=== PATIENT | female | born 1975 | race Two or more races ===

== ENCOUNTER 2017-09-06 12:12 | Emergency (ER) | payer OTHER ==
[2017-09-06 12:21] VITALS: RESP 18; TEMP 97.9
--- NOTE | 2017-09-06 12:55 | ED PDOC ---
Arrival/HPI - General Historian: Patient - General Chief Complaint: Finger,Hand,&Wrist Time Seen by Provider: 09/06/17 12:52 - History of Present Illness Narrative History of Present Illness (Text): 09/06/17 13:02 42yo female with no PMHx who present with complaint of tingling/numbness and pain to her hand and neck pain s/p trauma yesterday. States she fell while snow boarding and injured her neck. States she was seen at Urgent care center yesterday and told she have a Cervical strain. States she told to take Ibuprofen for her pain as needed, that the pain and paresthesia will resolve with time. She came to ED today for pain medication. She denies focal weakness, visual changes, headache, nausea, vomiting, any other complaint. (Armando Shrestha) Past Medical History - Provider Review Nursing Documentation Reviewed: Yes - Infectious Disease Hx of Infectious Diseases: None - Psychiatric Hx Substance Use: No - Surgical History Hx Section: Yes Family/Social History - Physician Review Nursing Documentation Reviewed: Yes Family/Social History: Unknown Family HX Smoking Status: Never Smoked Hx Alcohol Use: Yes Frequency of alcohol use: Socially Hx Substance Use: No Allergies/Home Meds Allergies/Adverse Reactions: Allergies No Known Allergies Allergy (Verified 09/06/17 12:22) Review of Systems - Physician Review All systems were reviewed & negative as marked: Yes - Review of Systems Constitutional: Normal Eyes: Normal ENT: Normal Respiratory: Normal Cardiovascular: Normal Gastrointestinal: Normal Genitourinary Female: Normal Musculoskeletal: Arthralgias (B/L hand pain/paresthesia), Neck Pain Skin: Normal Neurological: Normal Endocrine: Normal Hemo/Lymphatic: Normal Psychiatric: Normal Physical Exam Vital Signs Reviewed: Yes Temperature: Afebrile Blood Pressure: Normal Pulse: Regular Respiratory Rate: Normal Appearance: Positive for: Well-Appearing, Non-Toxic, Comfortable Pain Distress: None Mental Status: Positive for: Alert and Oriented X 3 - Systems Exam Head: Present: Atraumatic, Normocephalic Pupils: Present: PERRL Extroacular Muscles: Present: EOMI Conjunctiva: Present: Normal Mouth: Present: Moist Mucous Membranes Neck: Present: Normal Range of Motion. No: MIDLINE TENDERNESS, Paraspinal Tenderness Respiratory/Chest: Present: Clear to Auscultation, Good Air Exchange. No: Respiratory Distress, Accessory Muscle Use Cardiovascular: Present: Regular Rate and Rhythm, Normal S1, S2. No: Murmurs Abdomen: Present: Normal Bowel Sounds. No: Tenderness, Distention, Peritoneal Signs Back: Present: Normal Inspection Upper Extremity: Present: Normal Inspection, Normal ROM, NORMAL PULSES, Neurovascularly Intact. No: Cyanosis, Edema, Tenderness, Swelling, Deformity Lower Extremity: Present: Normal Inspection. No: Edema Neurological: Present: GCS=15, CN II-XII Intact, Speech Normal Skin: Present: Warm, Dry, Normal Color. No: Rashes Psychiatric: Present: Alert, Oriented x 3, Normal Insight, Normal Concentration Vital Signs Temp Pulse Resp BP Pulse Ox 09/06/17 13:25 78 18 120/79 98 09/06/17 12:18 97.9 F 76 18 143/90 99 Medical Decision Making ED Course and Treatment: 09/06/17 19:54 Pt in ED for stated history. She had FROM. NVI. Strength was 5/5. She was already seen at and had xray of her cervical spine done. She came to ED for pain control. she was treated and DC home with Neurontin. Referred to her PMD/ ortho. (Armando Shrestha) - Medication Orders Current Medication Orders: Discontinued Medications Gabapentin (Neurontin) 300 mg PO STAT STA PRN Reason: Protocol Stop: 09/06/17 12:53 Last Admin: 09/06/17 13:01 Dose: 300 mg Disposition/Present on Arrival - Present on Arrival Any Indicators Present on Arrival: No History of DVT/PE: No History of Uncontrolled Diabetes: No Urinary Catheter: No History of Decub. Ulcer: No History Surgical Site Infection Following: None - Disposition Have Diagnosis and Disposition been Completed?: Yes Disposition Time: 13:15 Patient Plan: Discharge - Disposition Diagnosis: Paresthesia of both hands, Neck pain Disposition: HOME/ ROUTINE Condition: STABLE Discharge Instructions (ExitCare): Neck Pain, Paresthesias (DC) Additional Instructions: Follow up with your doctor Return to ED for any new symptoms Prescriptions: Gabapentin [Neurontin] 300 mg PO TID #15 cap Referrals: PCP,NO [Primary Care Provider] - Follow up with primary Francisco Brizuela MD [Staff Provider] - Follow up with primary Forms: Asker (Greek)
[2017-09-06 13:25] VITALS: BP 120/79; PULSE 78; O2SAT 98
== END 2017-09-06 13:25 | disposition home or self-care (01) ==
LOC: ED 12:12
DX: R20.2 Paresthesia of skin (principal); M54.2 Cervicalgia

== ENCOUNTER 2017-09-07 13:02 | Inpatient (IN) | payer OTHER ==
--- NOTE | 2017-09-07 14:16 | ED PDOC ---
Arrival/HPI - General Chief Complaint: Trauma Time Seen by Provider: 09/07/17 13:08 Historian: Patient - History of Present Illness Narrative History of Present Illness (Text): 09/07/17 14:11 Patient is a 42 yo female presents to the Emergency Department complaining of worsening neck pain as well as hand "hypersensitivity" and pain since ER visit yesterday. Patient reports that she fell while snowboarding 2 days ago in [place]. states that patient fell forward and hit her head and "her goggles and helmet flew off" and her "head snapped back". Patient states she immediately felt some pain to BOTH hands and some neck pain. No loss of consciousness. Denies facial pain or chest pain or shortness of breath. Patient reportedly was assessed by a "clinic at the [facility]" where she reportedly "had xrays which were negative" of her "neck and back". Patient has had persistent pain in her neck and hands. She states that since her ER visit yesterday pain was worse in hands, but she denies weakness or incontinence. Denies sore throat or difficulty swallowing. She states that she feels pain to both her hands, bilaterally and feels that "they are burning and hypersensitive ", with pain specifically more noticeable in the fourth fingers of both hands. She denies shoulder pain or elbow pain. She denies swelling. She denies weakness in legs or unsteadiness. 09/07/17 14:54 CT Cervical Spine reviewed, shows: VERTEBRAE: Reversal of the anatomic lordosis with kyphosis. Degree: Mild. Proliferative changes confined to the C5-6 level. Mild impression upon the spinal canal at this level. DISCS/SPINAL CANAL/NEURAL FORAMINA: Focal disc degenerative changes C5-6 with hypertrophic bar formation. No visualized focal disc. Disc heights are otherwise preserved. No neural foraminal abnormalities identified. PARASPINAL SOFT TISSUES: Unremarkable. OTHER FINDINGS: None. IMPRESSION: Mild kyphosis replacing anatomic lower doses. Isolated disc degenerative change C5-6. Otherwise unremarkable study. Past Medical History - Infectious Disease Hx of Infectious Diseases: None - Psychiatric Hx Substance Use: No - Surgical History Hx Section: Yes (x1) Family/Social History Family/Social History: Unknown Family HX Smoking Status: Never Smoked Hx Alcohol Use: Yes Hx Substance Use: No Allergies/Home Meds Allergies/Adverse Reactions: Allergies No Known Allergies Allergy (Verified 09/07/17 13:27) Home Medications: Home Meds Medication Instructions Recorded Confirmed Alprazolam [Xanax] 0.5 mg PO Q8 PRN 09/08/17 09/08/17 Review of Systems - Review of Systems Constitutional: absent: Fevers Eyes: absent: Vision Changes, Photophobia, Eye Pain ENT: absent: Hearing Changes Respiratory: absent: SOB Cardiovascular: absent: Chest Pain Gastrointestinal: absent: Abdominal Pain Genitourinary Female: absent: Dysuria, Frequency, Hematuria, Urine Output Changes Musculoskeletal: Neck Pain, Other (pain to bilateral hands ). absent: Back Pain Skin: absent: Rash, Cellulitis Neurological: Other (pain and numbness to hands bilaterally, DENIES numbness to legs). absent: Headache, Dizziness Endocrine: absent: Polyuria Psychiatric: absent: Depression Physical Exam Vital Signs Reviewed: Yes Vital Signs Temp Pulse Resp BP Pulse Ox 09/07/17 21:00 72 19 131/67 97 09/07/17 19:00 97.8 F 69 18 128/68 100 09/07/17 17:00 97.9 F 72 18 127/79 100 09/07/17 16:00 97.9 F 70 18 135/88 99 09/07/17 13:22 97.9 F 67 17 134/87 99 Temperature: Afebrile Appearance: Positive for: Uncomfortable Pain Distress: Moderate Mental Status: Positive for: Alert and Oriented X 3 - Systems Exam Head: No: Tenderness, Contusion, Swelling, Ecchymosis Pupils: Present: PERRL Extroacular Muscles: Present: EOMI Conjunctiva: No: Injected Pharnyx: No: Strider Nose (Internal): Present: Normal Inspection Neck: Present: MIDLINE TENDERNESS (mid lower cerivical spine, no stepoffs), Paraspinal Tenderness, Trachea Midline Respiratory/Chest: Present: Clear to Auscultation. No: Respiratory Distress Cardiovascular: Present: Regular Rate and Rhythm Abdomen: No: Tenderness Back: No: Pain with Leg Raise Upper Extremity: Present: NORMAL PULSES. No: Swelling, Erythema, Deformity Lower Extremity: Present: Neurovascularly Intact Neurological: Present: CN II-XII Intact, Speech Normal, Gait Normal, Memory Normal, Other (patient has strong grasps bilaterally, median, radial, ulnar motor and sensory function intact, no weakness at shoulder or elbow, no saddle anesthesia or gait disturbance, no pronator drift) Skin: Present: Warm Psychiatric: Present: Alert, Normal Concentration Medical Decision Making ED Course and Treatment: 09/07/17 14:44 Patient seen in ED yesterday. I performed a follow-up call to patient this morning and she states that pain is worsening. On exam, no focal weakness noted, but there is worsening hand numbness/ sensitivity. No headache, no change in behavior, no loc. CT cervical spine ordered and reviewed with radiologist Dr. Springer. MRI ordered to assess spinal cord. 09/07/17 18:36 No change in neuro exam. Patient with minimal neck pain. States that she still has significant discomfort to both hands described as "electric shocks" and burning pain, although no focal weakness noted. No elbow or shoulder pain. NO lower extremity pain. CT neck reviewed with patient. MRI reviewed directly with radiologist. Neurologist emergently consulted dut to MRI findings, discussed case with Dr. Pang and reviewed ct and mri readings. Decadron ordered 4mg iv after consultation with Dr. Leslie Pang, neurology. Request for CTA of head and neck, this was ordered and reviewed with patient. Neurosurgeon Dr. Guardado consulted, who reviewed MRI films remotely, agrees with steroids, requests soft collar, will evaluate patient. I discussed exam and history directly with neurosurgery. Patient advised of imaging results and current treatment plan to admit for serial neuro exams, steroids, admission. Family and patient in agreement with treatment plan. 09/07/17 18:56 On-call physician requests admission to hospitalist service. Case d/w Dr. Toro, accepts admission to remote tele for neuro checks, serial exams. CTA of head and neck ordered as per neurology. Patient denies allergies. Patient 's CTA of head and neck will be signed out to admitting team/house doctor for follow-up. - Lab Interpretations Lab Results: 09/07/17 18:25 09/07/17 18:25 Lab Results 09/07/17 18:25: Sodium 143, Potassium 3.9, Chloride 105, Carbon Dioxide 25, Anion Gap 16, BUN 10, Creatinine 0.7, Est GFR ( Amer) > 60, Est GFR (Non- Af Amer) > 60, Random Glucose 94, Calcium 10.0, Total Bilirubin 0.7, AST 26, ALT 29, Alkaline Phosphatase 44, Total Protein 8.1, Albumin 4.6, Globulin 3.5, Albumin/Globulin Ratio 1.3 09/07/17 18:25: PT 11.3, INR 0.99, APTT 28.0 09/07/17 18:25: WBC 5.0, RBC 3.94, Hgb 10.9 L, Hct 33.8 L, MCV 85.8, MCH 27.7, MCHC 32.2, RDW 16.6 H, Plt Count 417, MPV 9.7, Gran % 51.1, Lymph % (Auto) 34.8 , [place] % (Auto) 12.5 H, Eos % (Auto) 1.2 L, Baso % (Auto) 0.4, Gran # 2.57, Lymph # (Auto) 1.8, [place] # (Auto) 0.6, Eos # (Auto) 0.1, Baso # (Auto) 0.02 09/07/17 17:15: Blood Type A POSITIVE, Antibody Screen Negative, BBK History Checked No verified bt - RAD Interpretation Radiology Orders: 09/07/17 13:40 CERVICAL SPINE W/O CONTRAST [CT] Stat 09/07/17 14:25 SPINAL CANAL CERVICAL W/O CONT [MRI] Stat 09/07/17 18:12 CTA HEAD & NECK BUNDLE [CT] Stat 09/07/17 19:00 CHEST PORTABLE [RAD] Stat - Medication Orders Current Medication Orders: Discontinued Medications Alprazolam (Xanax) 0.5 mg PO BID PRN; Protocol PRN Reason: Anxiety Last Admin: 09/08/17 13:07 Dose: 0.5 mg Behavioural Document 09/08/17 13:07 (Rec: 09/08/17 13:07 [facility] Maintenance Maintenance Dose Yes Re-Assess: Reassess Psych Meds Document 09/08/17 14:07 (Rec: 09/08/17 18:54 [facility] Reassess Psych Med Effective Alprazolam (Xanax) 0.5 mg PO Q8 PRN; Protocol PRN Reason: Anxiety Last Admin: 09/08/17 21:42 Dose: 0.5 mg Behavioural Document 09/08/17 21:42 [facility] (Rec: 09/08/17 21:43 [id number] Maintenance Maintenance Dose Yes Nonmedicinal Nonmedicinal Interventions Redirect Therapeutic Communication Activity Behavior Behavior for Medication: Anxiety Dexamethasone (Decadron Inj) 4 mg IVP Q12 [facility] Last Admin: 09/08/17 08:59 Dose: 4 mg IVP Administration Document 09/08/17 08:59 DH (Rec: 09/08/17 08:59 DH [id number]) Charges for Administration # of IVP Administrations 1 Dexamethasone (Decadron Inj) 2 mg IVP Q12 [facility] Last Admin: 09/08/17 09:53 Dose: Dexamethasone (Decadron Inj) 4 mg IVP Q12 [facility] Last Admin: 09/08/17 21:42 Dose: 4 mg IVP Administration Document 09/08/17 21:42 [facility] (Rec: 09/08/17 21:42 [facility] [id number]) Charges for Administration # of IVP Administrations 1 Dexamethasone 4 mg/ Sodium (Chloride) 51 mls @ 150 mls/hr IV ONCE ONE Stop: 09/07/17 18:27 Last Admin: 09/07/17 18:46 Dose: 150 mls/hr eMAR Start Stop Document 09/07/17 18:46 [facility] (Rec: 09/07/17 18:46 OCS [id number]) Intravenous Solution Start Date 09/07/17 Start Time 18:45 End Date 09/07/17 End time 19:05 Total Infusion Time 20 Ibuprofen (Motrin Tab) 400 mg PO Q6H PRN PRN Reason: Pain, Mild (1-3) Ondansetron HCl (Zofran Inj) 4 mg IVP Q4H PRN PRN Reason: Nausea/Vomiting Pantoprazole Sodium (Protonix Ec Tab) 40 mg PO 0600 [facility] Last Admin: 09/08/17 08:59 Dose: 40 mg Disposition/Present on Arrival - Present on Arrival Any Indicators Present on Arrival: No History of DVT/PE: No History of Uncontrolled Diabetes: No Urinary Catheter: No History of Decub. Ulcer: No History Surgical Site Infection Following: None - Disposition Have Diagnosis and Disposition been Completed?: Yes Diagnosis: Cervical herniated disc Disposition: HOSPITALIZED Disposition Time: 18:51 Patient Plan: Admission Condition: STABLE
--- NOTE | 2017-09-07 14:29 | CT ---
PROCEDURE: CT Cervical Spine without contrast HISTORY: <fall with hyperextension, neck pain> COMPARISON: None available. TECHNIQUE: Axial computed tomography images were obtained of the cervical spine without the use of intravenous contrast. Coronal and sagittal reformatted images were created and reviewed. Radiation dose: Total exam DLP = 310.15 unknown mGy-cm. This CT exam was performed using one or more of the following dose reduction techniques: Automated exposure control, adjustment of the mA and/or kV according to patient size, and/or use of iterative reconstruction technique. FINDINGS: VERTEBRAE: Reversal of the anatomic lordosis with kyphosis. Degree: Mild. Proliferative changes confined to the C5-6 level. Mild impression upon the spinal canal at this level. DISCS/SPINAL CANAL/NEURAL FORAMINA: Focal disc degenerative changes C5-6 with hypertrophic bar formation. No visualized focal disc. Disc heights are otherwise preserved. No neural foraminal abnormalities identified. PARASPINAL SOFT TISSUES: Unremarkable. OTHER FINDINGS: None. IMPRESSION: Mild kyphosis replacing anatomic lower doses. Isolated disc degenerative change C5-6. Otherwise unremarkable study.
--- NOTE | 2017-09-07 17:37 | MRI ---
PROCEDURE: MR CERVICAL SPINE WITHOUT CONTRAST HISTORY: bilateral hand numbness after neck injury COMPARISON: None available. TECHNIQUE: Multiecho multiplanar sequences were performed through the cervical spine without the use of intravenous contrast. FINDINGS: Normal lordotic curvature. Craniocervical junction unremarkable. Vertebral body heights preserved. No marrow signal abnormality. Normal cervical cord. No paraspinal abnormality. C2-C3: No disc herniation, spinal canal stenosis or neural foraminal narrowing. C3-C4: No disc herniation, spinal canal stenosis or neural foraminal narrowing. C4-C5: No disc herniation, spinal canal stenosis or neural foraminal narrowing. C5-C6: C5-6 broad-based central disc herniation with cord impingement and spinal stenosis C6-C7: No disc herniation, spinal canal stenosis or neural foraminal narrowing. C7-T1: No disc herniation, spinal canal stenosis or neural foraminal narrowing. OTHER FINDINGS: None. IMPRESSION: C5-6 broad-based central disc herniation with cord impingement and spinal stenosis
[2017-09-07] MEDS ORDERED: Dexamethasone 4 mg/1 ml ONE (18:19)
[2017-09-07] MEDS: Dexamethasone 4 MG in Sodium Chloride 0.9% 50 ML IV ONE ×2 (18:23→18:46)
[2017-09-07] MEDS ORDERED: Iohexol 300 100 ML IJ ONE (18:48)
[2017-09-07] MEDS ORDERED: Iohexol 350 MG/100 ML VIAL ONE (18:48)
[2017-09-07 18:59] LABS: BASO # 0.02 K/mm3 (0.0-2.0); BASO % 0.4 % (0.0-3.0); EOS # 0.1 (0.0-0.7); EOS % 1.2 % (1.5-5.0); GRAN # 2.57 (1.4-6.5); GRAN % 51.1 % (50.0-68.0); HEMOGLOBIN 10.9 g/dL (12.0-16.0); LYMPH # 1.8 (1.2-3.4); LYMPH % 34.8 % (22.0-35.0); MEAN CELL VOLUME 85.8 fl (80.0-105.0); MEAN CORPUSCULAR HEMOGLOBIN 27.7 pg (25.0-35.0); MEAN CORPUSCULAR HGB CONC 32.2 g/dl (31.0-37.0); MEAN PLATELET VOLUME 9.7 fl (7.0-11.0); MONO # 0.6 (0.1-0.6); MONO % 12.5 % (1.0-6.0); RBC 3.94 10^6/uL (3.5-6.1); RED CELL DISTRIBUTION WIDTH 16.6 % (11.5-14.5)
[2017-09-07 19:06] LABS: PROTHROMBIN TIME 11.3 SECONDS (9.4-12.5)
[2017-09-07 19:07] LABS: INR 0.99 (0.93-1.08)
[2017-09-07 19:09] LABS: ALB/GLOB RATIO 1.3 (1.1-1.8); ALBUMIN 4.6 g/dL (3.0-4.8); ALT/SGPT 29 U/L (7-56); AST/SGOT 26 U/L (14-36); BLOOD UREA NITROGEN 10 mg/dL (7-21); GFR AFRICAN-AMERICAN > 60; GFR NON-AFRICAN AMERICAN > 60
--- NOTE | 2017-09-07 21:57 | CP.PCM.HP ---
History of Present Illness - History of Present Illness History of Present Illness: Sean Grey PGY1 IM H&P Note for Hospitalist service cc: neck pain s/p snowboarding accident Patient is a 42 yo female with no significant PMH who presented to the Emergency Department complaining of worsening neck pain as well as hand "hypersensitivity" and pain since ER visit yesterday. Patient reports that she fell while snowboarding 2 days ago in [place]. states that patient fell forward and hit her head on the hard snow and "her goggles and helmet flew off" and her "head snapped back" like a whiplash accident. Patient states she immediately felt some pain to BOTH hands and some neck pain. No loss of consciousness. Patient was seen in ED yesterday, but states that since her visit , the pain worsened in hands, but she denies weakness or incontinence. She states that her pain has improved significantly s/p decadron but she is anxious about the possibility of surgery. she denies chest pain, shortness of breath, changes in vision/hearing, ringing in ears, pain w/ eye movements, back pain, abdominal pain, loss of bowel/urine incontinence, leg weakness or LE parasthesias. 12-pt ROS was reviewed and is otherwise unremarkable. PMD: Dr. Nunez PMH: as above PSH: c section x1 Meds: Xanax PRN NKDA SHx: denies tobacco, ETOH, and illicit substance abuse; works as taxation accountant FHx: noncontributory Present on Admission - Present on Admission Any Indicators Present on Admission: No Review of Systems - Review of Systems All systems: reviewed and no additional remarkable complaints except (as per HPI ) Past Patient History - Infectious Disease Hx of Infectious Diseases: None - Past Social History Smoking Status: Never Smoked Alcohol: None Drugs: Denies Home Situation {Lives}: With Family - CARDIAC Hx Cardiac Disorders: No - PULMONARY Hx Respiratory Disorders: No - NEUROLOGICAL Hx Neurological Disorder: No - HEENT Hx HEENT Problems: No - RENAL Hx Chronic Kidney Disease: No - ENDOCRINE/METABOLIC Hx Endocrine Disorders: No - HEMATOLOGICAL/ONCOLOGICAL Hx Blood Disorders: No - INTEGUMENTARY Hx Dermatological Problems: No - MUSCULOSKELETAL/RHEUMATOLOGICAL Hx Musculoskeletal Disorders: No - GASTROINTESTINAL Hx Gastrointestinal Disorders: No - GENITOURINARY/GYNECOLOGICAL Hx Genitourinary Disorders: No - PSYCHIATRIC Hx Anxiety: Yes Hx Substance Use: No - SURGICAL HISTORY Hx Section: Yes (x1) Meds Allergies/Adverse Reactions: Allergies Allergy/AdvReac Type Severity Reaction Status Date / Time No Known Allergies Allergy Verified 09/07/17 13:27 Physical Exam - Constitutional Appears: Well, Non-toxic, No Acute Distress - Head Exam Head Exam: ATRAUMATIC, NORMAL INSPECTION - Eye Exam Eye Exam: EOMI, Normal appearance, PERRL - ENT Exam ENT Exam: Mucous Membranes Moist, Normal Exam - Neck Exam Neck exam: Positive for: Full Rom, Normal Inspection. Negative for: Tenderness Additional comments: soft collar on - Respiratory Exam Respiratory Exam: Clear to Auscultation Bilateral, NORMAL BREATHING PATTERN. absent: Rales, Rhonchi, Wheezes - Cardiovascular Exam Cardiovascular Exam: RRR, +S1, +S2 - GI/Abdominal Exam GI & Abdominal Exam: Normal Bowel Sounds, Soft. absent: Distended, Tenderness - Extremities Exam Extremities exam: Positive for: full ROM, normal inspection, pedal pulses present. Negative for: pedal edema, tenderness - Back Exam Back exam: NORMAL INSPECTION - Neurological Exam Neurological exam: Alert, CN II-XII Intact, Oriented x3, Reflexes Normal Additional comments: no motor sensory deficit noted UE motor strength 5/5 b/l - Psychiatric Exam Psychiatric exam: Anxious - Skin Skin Exam: Normal Color, Warm Results - Vital Signs Recent Vital Signs: Last Vital Signs Temp 97.9 F 09/07/17 13:22 Pulse 67 09/07/17 13:22 Resp 17 09/07/17 13:22 BP 134/87 09/07/17 13:22 Pulse Ox 99 09/07/17 13:22 - Labs Result Diagrams: 09/07/17 18:25 09/07/17 18:25 Labs: Laboratory Results - last 24 hr 09/07/17 19:37 Blood Type Confirm A POSITIVE Assessment & Plan - Assessment and Plan (Free Text) Assessment: 42 yo F with no PMH presenting with neck pain and b/l hand pain s/p trauma. Found to have C5-C6 herniated disc spinal stenosis. Patient's neuro exam is unremarkable and her symptoms improved w/ decadron, given per neuro recs. Plan: 1. C5-C6 herniated disc w/ spinal stenosis - MRI showed C5-C6 disc bulge resulting in moderate canal and moderate bilateral foraminal stenosis. - Head/Neck CTA pending - EKG was NSR 73 w/ no ST/T wave changes - case was discussed by ED MD and Dr. Pang, and decadron 4mg IVP was ordered - Neurosurgery was consulted, and recommended soft collar and no further intervention at this time - cont Neurochecks Q2h - admit patient to remote telemetry for close monitoring - cont Decadron 4mg IVP Q12h - monitor for changes in mental status - monitor for changes in vital signs - will contact Neurology if any changes - will f/u morning labs - will keep patient NPO past midnight in case Neuro/Neurosurgery wants a procedure after eval DVT/GI PPX: SCDs, PTX Regular Diet pending nurse swallow eval NPO past midnight Patient was seen, examined and discussed with attending, Dr. Leslie Grey PGY1
[2017-09-07] MEDS: Dexamethasone 4 mg/1 ml IVP SCH (22:11)
--- NOTE | 2017-09-08 01:51 | CT ---
EXAM: CT Angiography Head With Intravenous Contrast CT Angiography Neck With Intravenous Contrast CLINICAL HISTORY: 42 years old, female; Pain; Headache; Additional info: Eval for carotid dissection, vo. Dr. Pang, neuro TECHNIQUE: Axial computed tomographic angiography images of the head and neck with intravenous contrast using CT angiography protocol. All CT scans at this facility use one or more dose reduction techniques, viz.: automated exposure control; ma/kV adjustment per patient size (including targeted exams where dose is matched to indication; i.e. head); or iterative reconstruction technique. MIP reconstructed images were created and reviewed. Coronal and sagittal reformatted images were created and reviewed. CONTRAST: 96 mL of OMNI 350 administered intravenously. COMPARISON: CT - CERVICAL SPINE W/O CONTRAST 2017-09-07 14:06 FINDINGS: HEAD: Right anterior cerebral artery: Unremarkable. No occlusion or significant stenosis. No aneurysm. Right middle cerebral artery: Unremarkable. No occlusion or significant stenosis. No aneurysm. Right posterior cerebral artery: Unremarkable. No occlusion or significant stenosis. No aneurysm. Left anterior cerebral artery: Unremarkable. No occlusion or significant stenosis. No aneurysm. Left middle cerebral artery: Unremarkable. No occlusion or significant stenosis. No aneurysm. Left posterior cerebral artery: Unremarkable. No occlusion or significant stenosis. No aneurysm. Basilar artery: Unremarkable. No occlusion or significant stenosis. No aneurysm. Orbits: The globe and lens are intact. NECK: Right common carotid artery: Unremarkable. No significant stenosis. No dissection or occlusion. Right internal carotid artery: Unremarkable. No significant stenosis. No dissection or occlusion. Right external carotid artery: Unremarkable. No occlusion. Right vertebral artery: Unremarkable. No significant stenosis. No dissection or occlusion. Left common carotid artery: Unremarkable. No significant stenosis. No dissection or occlusion. Left internal carotid artery: Unremarkable. No significant stenosis. No dissection or occlusion. Left external carotid artery: Unremarkable. No occlusion. Left vertebral artery: Unremarkable. No significant stenosis. No dissection or occlusion. Other vasculature: There is venous contamination of the arterial phase. Bovine aortic arch. Thyroid: There mild prominence of thyroid gland. Lung apices: Right upper lobe calcified pulmonary parenchymal granuloma. Biapical nonspecific pleural parenchymal changes representing sequela of infectious or inflammatory versus atelectatic etiology. HEAD and NECK: Bones/joints: Reversal of the normal cervical lordosis may be positional versus muscular spasm. No acute fracture. No dislocation. Soft tissues: Unremarkable. No mass. CAROTID STENOSIS REFERENCE USING NASCET CRITERIA: % ICA stenosis = (1 - narrowest ICA diameter/diameter of distal cervical ICA) x 100. Mild - <50% stenosis. Moderate - 50-69% stenosis. Severe - 70-94% stenosis. Near occlusion - 95-99% stenosis. Occluded - 100% stenosis. IMPRESSION: No acute findings.
[2017-09-08] MEDS: Pantoprazole 40 mg EC Tab PO SCH ×2 (05:47→08:59)
--- NOTE | 2017-09-08 08:37 | CP.PCM.PN ---
Subjective - Date & Time of Evaluation Date of Evaluation: 09/08/17 Time of Evaluation: 07:35 - Subjective Subjective: Gerald Cao DO, PGY-1 Hospitalist Service Patient seen and examined at bedside. Patient reports feeling anxious and experiencing palpitations; last took Alprazolam Friday. Patient reports hyperesthesias in hands bilaterally; denies weakness. Chart review indicates pateint's BP is elevated since this AM. On a subsequent encounter, we discussed with the patient (and her ) at length, the potential sequlae of delaying or refusing neurosurgical intervention at this time. We also reviewed the MRI with the patient and her . Objective - Vital Signs/Intake and Output Vital Signs (last 24 hours): Temp Pulse Resp BP Pulse Ox 98 F 86 18 160/80 H 99 09/08/17 05:51 09/08/17 05:51 09/08/17 05:51 09/08/17 05:51 09/08/17 05:51 Intake and Output: 09/08/17 09/08/17 06:59 18:59 Intake Total 0 Output Total 600 Balance -600 - Medications Medications: Current Medications Alprazolam (Xanax) 0.5 mg PO BID PRN; Protocol PRN Reason: Anxiety Dexamethasone (Decadron Inj) 4 mg IVP Q12 [facility] Last Admin: 09/07/17 22:11 Dose: 4 mg Ibuprofen (Motrin Tab) 400 mg PO Q6H PRN PRN Reason: Pain, Mild (1-3) Ondansetron HCl (Zofran Inj) 4 mg IVP Q4H PRN PRN Reason: Nausea/Vomiting Pantoprazole Sodium (Protonix Ec Tab) 40 mg PO 0600 [facility] Last Admin: 09/08/17 05:47 Dose: Not Given - Labs Labs: PT 11.3 SECONDS (9.4-12.5) 09/07/17 18:25 INR 0.99 (0.93-1.08) 09/07/17 18:25 APTT 28.0 Seconds (25.1-36.5) 09/07/17 18:25 - Constitutional Appears: Non-toxic, No Acute Distress - Head Exam Head Exam: ATRAUMATIC, NORMOCEPHALIC - Eye Exam Eye Exam: EOMI, Normal appearance - ENT Exam ENT Exam: Mucous Membranes Moist - Neck Exam Additional comments: in brace - Respiratory Exam Respiratory Exam: Clear to Ausculation Bilateral, NORMAL BREATHING PATTERN. absent: Accessory Muscle Use - Cardiovascular Exam Cardiovascular Exam: RRR, +S1, +S2 - GI/Abdominal Exam GI & Abdominal Exam: Soft - Extremities Exam Additional comments: hand parts sales associate, finger adduction and abduction within normal limits, upper extremity motor strength 5/5 in all styles of motion; sensation equal and symmetric bilaterally in both upper extremities. - Neurological Exam Neurological Exam: Alert, Awake Neuro motor strength exam: Left Upper Extremity: 5, Right Upper Extremity: 5, Left Lower Extremity: 5, Right Lower Extremity: 5 - Psychiatric Exam Psychiatric exam: Anxious, Normal Affect - Skin Skin Exam: Dry, Intact, Normal Color, Warm Assessment and Plan - Assessment and Plan (Free Text) Assessment: 42 year old male with a fall on Friday when snow-boarding. Patient had CT/MRI of the neck that showed C5-6 broad-based central disc herniation with cord impingement and spinal stenosis. Neurosurgery, Dr. Gardiner, consulted and recommends C5-C6 fusion with laminectomy Plan: 1) C5-6 broad-based central disc herniation with cord impingement and spinal stenosis - Continue informed to continue wearing cervical spine collar. - Neurosurgery consulted and recommend C5-C6 fusion with laminectomy, appreciate recommendations from Dr. Gardiner. - Neurology consulted, appreciate recommedations. - Continue with Dexamethasone 4 mg IVP q12h. - Ibuprofen 400 mg q6h. - Dr. Dawson, neurosurgeon, to see patient tomorrow in the AM. 2) Anxiety disorder, unspecified - Alprazolam 0.5 mg TID PRN for anxiety 3) GI prophylaxis and nausea - Pantoprazole 40 mg PO daily - Zofran 4 mg q4h Case seen and discussed with attending physician, Dr. Madison.
[2017-09-08] MEDS: Dexamethasone 4 mg/1 ml IVP SCH (08:59)
[2017-09-08] MEDS ORDERED: Dexamethasone 4 mg/1 ml IVP SCH ×2 (09:40→13:11)
--- NOTE | 2017-09-08 09:57 | RAD ---
HISTORY: possible OR case COMPARISON: No prior. FINDINGS: LUNGS: No active pulmonary disease. PLEURA: No significant pleural effusion identified, no pneumothorax apparent. CARDIOVASCULAR: Normal. OSSEOUS STRUCTURES: No significant abnormalities. VISUALIZED UPPER ABDOMEN: Normal. OTHER FINDINGS: None. IMPRESSION: No active disease.
--- NOTE | 2017-09-08 10:30 | CP.PCM.PN ---
Subjective - Date & Time of Evaluation Date of Evaluation: 09/08/17 Time of Evaluation: 10:28 - Subjective Subjective: Full consult dictated severe C5/6HNP with cord compression RecomendedACDF C5/6 She at this time refuses will discuss again with her later today can have diet today and should remain on steroids Objective - Vital Signs/Intake and Output Vital Signs (last 24 hours): Temp Pulse Resp BP Pulse Ox 98 F 86 18 160/80 H 99 09/08/17 05:51 09/08/17 05:51 09/08/17 05:51 09/08/17 05:51 09/08/17 05:51 Intake and Output: 09/08/17 09/08/17 06:59 18:59 Intake Total 0 Output Total 600 Balance -600 - Medications Medications: Current Medications Alprazolam (Xanax) 0.5 mg PO BID PRN; Protocol PRN Reason: Anxiety Last Admin: 09/08/17 08:59 Dose: 0.5 mg Dexamethasone (Decadron Inj) 2 mg IVP Q12 [facility] Last Admin: 09/08/17 09:53 Dose: Not Given Ibuprofen (Motrin Tab) 400 mg PO Q6H PRN PRN Reason: Pain, Mild (1-3) Ondansetron HCl (Zofran Inj) 4 mg IVP Q4H PRN PRN Reason: Nausea/Vomiting Pantoprazole Sodium (Protonix Ec Tab) 40 mg PO 0600 [facility] Last Admin: 09/08/17 08:59 Dose: 40 mg - Labs Labs: PT 11.3 SECONDS (9.4-12.5) 09/07/17 18:25 INR 0.99 (0.93-1.08) 09/07/17 18:25 APTT 28.0 Seconds (25.1-36.5) 09/07/17 18:25
--- NOTE | 2017-09-08 14:37 | CP.PCM.CON ---
History of Present Illness - History of Present Illness History of Present Illness: Neurology Consultation Note: Ms. Pratt is a 42-year-old woman with no significant past medical history, who presented to the ED after a fall and neck injury while snow boarding 3 days ago. She states that her fall was sudden after hitting a patch of ice. She "face planted" and hyper-extended her neck. She was dazed and when she tried to get up by using her hands for support, she felt numbness and some tingling of both arms and hands. She went home, rested, saw her primary care, took gabapentin (did not help). She had imaging of the cervical spine as an outpatient and was told to go to the ED. MRI of the cervical spine confirmed C5/6 disc herniation with cord impingement and edema. She was started on IV steroids and improved somewhat. Neurosurgery was consulted and recommended fusion and laminectomy. Review of Systems - Review of Systems All systems: reviewed and no additional remarkable complaints except Past Patient History - Infectious Disease Hx of Infectious Diseases: None - Past Social History Smoking Status: Never Smoked Alcohol: None Drugs: Denies Home Situation {Lives}: With Family - CARDIAC Hx Cardiac Disorders: No - PULMONARY Hx Respiratory Disorders: No - NEUROLOGICAL Hx Neurological Disorder: No - HEENT Hx HEENT Problems: No - RENAL Hx Chronic Kidney Disease: No - ENDOCRINE/METABOLIC Hx Endocrine Disorders: No - HEMATOLOGICAL/ONCOLOGICAL Hx Blood Disorders: No - INTEGUMENTARY Hx Dermatological Problems: No - MUSCULOSKELETAL/RHEUMATOLOGICAL Hx Musculoskeletal Disorders: No - GASTROINTESTINAL Hx Gastrointestinal Disorders: No - GENITOURINARY/GYNECOLOGICAL Hx Genitourinary Disorders: No - PSYCHIATRIC Hx Anxiety: Yes Hx Substance Use: No - SURGICAL HISTORY Hx Section: Yes (x1) Meds Allergies/Adverse Reactions: Allergies Allergy/AdvReac Type Severity Reaction Status Date / Time No Known Allergies Allergy Verified 09/07/17 13:27 - Medications Medications: Current Medications Alprazolam (Xanax) 0.5 mg PO Q8 PRN; Protocol PRN Reason: Anxiety Dexamethasone (Decadron Inj) 4 mg IVP Q12 [facility] Ibuprofen (Motrin Tab) 400 mg PO Q6H PRN PRN Reason: Pain, Mild (1-3) Ondansetron HCl (Zofran Inj) 4 mg IVP Q4H PRN PRN Reason: Nausea/Vomiting Pantoprazole Sodium (Protonix Ec Tab) 40 mg PO 0600 [facility] Last Admin: 09/08/17 08:59 Dose: 40 mg Physical Exam - Neurological Exam Neurological exam: Alert, CN II-XII Intact, Normal Gait, Oriented x3 Additional comments: Brisk reflexes throughout (may be normal, not asymmetric). Sensation is intact to LT/P/T. Strength is full and symmetrical throughout. Romberg is normal. Plantar responses are downgoing. Results - Vital Signs Recent Vital Signs: Last Vital Signs Temp 98.8 F 09/08/17 12:00 Pulse 91 H 09/08/17 12:00 Resp 20 09/08/17 12:00 BP 151/92 H 09/08/17 12:00 Pulse Ox 99 09/08/17 10:00 - Labs Result Diagrams: 09/07/17 18:25 09/07/17 18:25 Labs: Laboratory Results - last 24 hr 09/07/17 19:37 Blood Type Confirm A POSITIVE Assessment & Plan (1) Cervical spinal cord compression Assessment and Plan: Will continue steroids and follow neurosurgery recommendations. The patient and her family requested a second opinion for neurosurgery. I contacted Dr. Scout Dawson, who will see the patient in the AM. The patient and her family are also researching spine surgery in [facility] for second opinion since they are hesitant about undergoing surgery and she appears to be very nervous. Status: Acute (2) Cervical herniated disc Status: Acute Priority: High
--- NOTE | 2017-09-08 18:21 | CARD ---
APPROVED REPORT EKG Measurement Heart [id number] <Conclusion> Normal sinus rhythm Normal ECG
--- NOTE | 2017-09-08 19:07 | CON ---
DATE: HISTORY OF PRESENT ILLNESS: This is a 42-year-old female who on Friday was snowboarding and had a "face plant" with hyperextension injury of her neck. She had neck pain going to her shoulder and she had numbness and paresthesias in her fingers, particularly the second, third and fourth, right hand worse than left hand. She came to the emergency room on 09/07 and was admitted after an MRI of the cervical spine showed a fairly large cervical disk herniation at C5-C6 with cord compression. She was started on IV Decadron. She reports that since that time, the pain has improved. The numbness is slightly better. It is still more prominent in the fourth finger of the right hand. She still has numbness and funny feeling in the dorsum of the left hand also. PAST MEDICAL HISTORY: She denies any significant past medical history. She says she gets very anxious. MEDICATIONS: She has no medications. SOCIAL HISTORY: Does not smoke or drink. ALLERGIES: REPORTED NONE. PHYSICAL EXAMINATION: Her exam today finds that she has 5/5 strength. She has notation on sensory exam of dysesthesias in the dorsum of the fourth finger on the right and dorsum of the hand and second, third, and fourth fingers on the left. She says the right hand is more pronounced. Her reflexes are 2+/4. There were no pathologic reflexes. She is in a soft collar. DIAGNOSTIC STUDIES: I discussed with her the findings of the cervical MRI. I explained to her that she has neurologic findings secondary to the disk herniation of C5-C6 and my recommendation was a C5-C6 anterior diskectomy and fusion. ASSESSMENT AND PLAN: I explained to her in great detail the risks, benefits, and alternatives of the surgery, I explained to her in detail the complications associated with surgery and I explained to her the complications associated with non-operating. I was very particular explaining in detail that there is a very high risk of her becoming quadriplegic or paraplegic given another flexion, extension, or hyperextension injury if she does not have the surgery given the severe amount of cord compression. She had a male strip winder there. I did not ask his name, but she made it very clear that at this point, she is unwilling to undergo surgery. She wants some time, possibly a week or longer, I told her my medical opinion that was not a good idea. I told her she should stay on the IV steroids for at least another day and that I will ask her again later today if she wishes to proceed with surgery tomorrow. If she does not, then I or my partner will be into discuss surgery again with her tomorrow. It is my feeling that the severity of her injury as well as the risks associated with both surgical intervention and nonsurgical treatment have been fully discussed with her and she is choosing nonsurgical intervention and if she continues to decide upon that way, I feel that she would be in the best medical interest of myself and the hospital to have her sign refusal of treatment before discharge. We will follow up with her and again discuss the severity of her injury as well as the findings and treatment plans with her either later today or tomorrow. Sudeep Gardiner MD
--- NOTE | 2017-09-08 20:46 | CP.PCM.DIS ---
<MichaelMelinda - Last Filed: 09/08/17 20:47> Provider - Provider Date of Admission: 09/07/17 19:02 Attending physician: Alexandria Toro MD Primary care physician: Brayden Nunez MD Time Spent in preparation of Discharge (in minutes): 40 Diagnosis - Discharge Diagnosis (1) Cervical spinal cord compression Status: Acute Hospital Course - Lab Results Lab Results: Most Recent Lab Values WBC 5.0 10^3/ul (4.5-11.0) 09/07/17 18:25 RBC 3.94 10^6/uL (3.5-6.1) 09/07/17 18:25 Hgb 10.9 g/dL (12.0-16.0) L 09/07/17 18:25 Hct 33.8 % (36.0-48.0) L 09/07/17 18:25 MCV 85.8 fl (80.0-105.0) 09/07/17 18:25 MCH 27.7 pg (25.0-35.0) 09/07/17 18:25 MCHC 32.2 g/dl (31.0-37.0) 09/07/17 18:25 RDW 16.6 % (11.5-14.5) H 09/07/17 18:25 Plt Count 417 10^3/uL (120.0-450.0) 09/07/17 18:25 MPV 9.7 fl (7.0-11.0) 09/07/17 18:25 Gran % 51.1 % (50.0-68.0) 09/07/17 18:25 Lymph % (Auto) 34.8 % (22.0-35.0) 09/07/17 18:25 Denali % (Auto) 12.5 % (1.0-6.0) H 09/07/17 18:25 Eos % (Auto) 1.2 % (1.5-5.0) L 09/07/17 18:25 Baso % (Auto) 0.4 % (0.0-3.0) 09/07/17 18:25 Gran # 2.57 (1.4-6.5) 09/07/17 18:25 Lymph # (Auto) 1.8 (1.2-3.4) 09/07/17 18:25 Denali # (Auto) 0.6 (0.1-0.6) 09/07/17 18:25 Eos # (Auto) 0.1 (0.0-0.7) 09/07/17 18:25 Baso # (Auto) 0.02 K/mm3 (0.0-2.0) 09/07/17 18:25 PT 11.3 SECONDS (9.4-12.5) 09/07/17 18:25 INR 0.99 (0.93-1.08) 09/07/17 18:25 APTT 28.0 Seconds (25.1-36.5) 09/07/17 18:25 Sodium 143 mmol/L (132-148) 09/07/17:25 Potassium 3.9 mmol/L (3.6-5.0) 09/07/17:25 Chloride 105 mmol/L (98-107) 09/07/17 18:25 Carbon Dioxide 25 mmol/L (21-33) 09/07/17 18:25 Anion Gap 16 (10-20) 09/07/17 18:25 BUN 10 mg/dL (7-21) 09/07/17 18:25 Creatinine 0.7 mg/dl (0.7-1.2) 09/07/17 18:25 Est GFR ( Amer) > 60 09/07/17 18:25 Est GFR (Non-Af Amer) > 60 09/07/17 18:25 Random Glucose 94 mg/dL (70-110) 09/07/17: Calcium 10.0 mg/dL (8.4-10.5) 09/07/17 18:25 Total Bilirubin 0.7 mg/dL (0.2-1.3) 09/07/17 18:25 AST 26 U/L (14-36) 09/07/17 18:25 ALT 29 U/L (7-56) 09/07/17 18:25 Alkaline Phosphatase 44 U/L (38-126) 09/07/17 18:25 Total Protein 8.1 g/dL (5.8-8.3) 09/07/17 18:25 Albumin 4.6 g/dL (3.0-4.8) 09/07/17 18:25 Globulin 3.5 gm/dL 09/07/17 18:25 Albumin/Globulin Ratio 1.3 (1.1-1.8) 09/07/17 18:25 Blood Type A POSITIVE 09/07/17 17:15 Blood Type Confirm A POSITIVE 09/07/17 19:37 Antibody Screen Negative 09/07/17 17:15 BBK History Checked No verified bt 09/07/17 17:15 - Hospital Course Hospital Course: Ms. Pratt is a 42-year-old woman with no significant past medical history, who presented to the ED after a fall and neck injury while snow boarding 3 days ago. She states that her fall was sudden after hitting a patch of ice. She "face planted" and hyper-extended her neck. She was dazed and when she tried to get up by using her hands for support, she felt numbness and some tingling of both arms and hands. She went home, rested, saw her primary care, took gabapentin (did not help). She had imaging of the cervical spine as an outpatient and was told to go to the ED. MRI of the cervical spine confirmed C5/6 disc herniation with severe cord impingement and edema. She was placed on soft collar and was started on decadrom 4 IV q12 and numbness and tingling of hands improved somewhat. Neurosurgery was consulted and recommended cervical discectomy and fusion. The patient and her family requested a second opinion for neurosurgery. Neurology contacted Dr. Scout Dawson. The patient and her family are also researching spine surgery in [facility] for second opinion since they are hesitant about undergoing surgery and she appears to be very nervous. Patient agrees to be evaluated at [facility]. The accepting doctor was Dr. Dawson. Discharge Exam - Head Exam Head Exam: ATRAUMATIC, NORMOCEPHALIC - Eye Exam Eye Exam: Normal appearance Pupil Exam: NORMAL ACCOMODATION - ENT Exam ENT Exam: Mucous Membranes Dry - Neck Exam Additional comments: on soft collar. motion limited. no pain - Respiratory Exam Respiratory Exam: Clear to PA & Lateral, NORMAL BREATHING PATTERN, UNREMARKABLE - Cardiovascular Exam Cardiovascular Exam: REGULAR RHYTHM, +S1, +S2 - GI/Abdominal Exam GI & Abdominal Exam: Normal Bowel Sounds, Unremarkable - Back Exam Back exam: absent: CVA tenderness (L), CVA tenderness (R) - Neurological Exam Neurological exam: Alert, CN II-XII Intact, Normal Gait, Oriented x3, Reflexes Normal - Psychiatric Exam Psychiatric exam: Anxious, Normal Affect, Normal Mood - Skin Skin Exam: Dry, Normal Color, Warm Discharge Plan - Follow Up Plan Condition: STABLE Disposition: OTHER INSTITUTION Additional Instructions: Patient discharged to [facility] for further management Referrals: Brayden Nunez MD [Primary Care Provider] - <Wild Madison - Last Filed: 09/09/17 08:35> Provider - Provider Date of Admission: 09/07/17 19:02 Attending physician: Alexandria Toro MD Primary care physician: Brayden Nunez MD [facility] Course - Lab Results Lab Results: Most Recent Lab Values WBC 5.0 10^3/ul (4.5-11.0) 09/07/17 18:25 RBC 3.94 10^6/uL (3.5-6.1) 09/07/17 18:25 Hgb 10.9 g/dL (12.0-16.0) L 09/07/17 18:25 Hct 33.8 % (36.0-48.0) L 09/07/17 18:25 MCV 85.8 fl (80.0-105.0) 09/07/17 18:25 MCH 27.7 pg (25.0-35.0) 09/07/17 18:25 MCHC 32.2 g/dl (31.0-37.0) 09/07/17 18:25 RDW 16.6 % (11.5-14.5) H 09/07/17 18:25 Plt Count 417 10^3/uL (120.0-450.0) 09/07/17 18:25 MPV 9.7 fl (7.0-11.0) 09/07/17 18:25 Gran % 51.1 % (50.0-68.0) 09/07/17 18:25 Lymph % (Auto) 34.8 % (22.0-35.0) 09/07/17 18:25 Denali % (Auto) 12.5 % (1.0-6.0) H 09/07/17 18:25 Eos % (Auto) 1.2 % (1.5-5.0) L 09/07/17 18:25 Baso % (Auto) 0.4 % (0.0-3.0) 09/07/17 18:25 Gran # 2.57 (1.4-6.5) 09/07/17 18:25 Lymph # (Auto) 1.8 (1.2-3.4) 09/07/17 18:25 Denali # (Auto) 0.6 (0.1-0.6) 09/07/17 18:25 Eos # (Auto) 0.1 (0.0-0.7) 09/07/17:25 Baso # (Auto) 0.02 K/mm3 (0.0-2.0) 09/07/17 18:25 PT 11.3 SECONDS (9.4-12.5) 09/07/17 18: INR 0.99 (0.93-1.08) 09/07/17 18:25 APTT 28.0 Seconds (25.1-36.5) 09/07/17 18:25 Sodium 143 mmol/L (132-148) 09/07/17: Potassium 3.9 mmol/L (3.6-5.0) 09/07/17: Chloride 105 mmol/L (98-107) 09/07/17 18: Carbon Dioxide 25 mmol/L (21-33) 09/07/17 18:25 Anion Gap 16 (10-20) 09/07/17 18:25 BUN 10 mg/dL (7-21) 09/07/17:25 Creatinine 0.7 mg/dl (0.7-1.2) 09/07/17 18:25 Est GFR ( Amer) > 60 09/07/17 18:25 Est GFR (Non-Af Amer) > 60 09/07/17 18:25 Random Glucose 94 mg/dL (70-110) 09/07/17: Calcium 10.0 mg/dL (8.4-10.5) 09/07/17 18:25 Total Bilirubin 0.7 mg/dL (0.2-1.3) 09/07/17 18:25 AST 26 U/L (14-36) 09/07/17 18:25 ALT 29 U/L (7-56) 09/07/17 18:25 Alkaline Phosphatase 44 U/L (38-126) 09/07/17 18:25 Total Protein 8.1 g/dL (5.8-8.3) 09/07/17 18:25 Albumin 4.6 g/dL (3.0-4.8) 09/07/17 18:25 Globulin 3.5 gm/dL 09/07/17 18:25 Albumin/Globulin Ratio 1.3 (1.1-1.8) 09/07/17 18:25 Blood Type A POSITIVE 09/07/17 17:15 Blood Type Confirm A POSITIVE 09/07/17 19:37 Antibody Screen Negative 09/07/17 17:15 BBK History Checked No verified bt 09/07/17 17:15 Attending/Attestation - Attestation I have personally seen and examined this patient.: Yes I have fully participated in the care of the patient.: Yes I have reviewed all pertinent clinical information, including history, physical exam and plan: Yes Notes (Text): Ms. Pratt is a 42-year-old woman with no significant past medical history, who presented to the ED after a fall and neck injury while snow boarding 3 days ago. She states that her fall was sudden after hitting a patch of ice. She "face planted" and hyper-extended her neck. She was dazed and when she tried to get up by using her hands for support, she felt numbness and some tingling of both arms and hands. She went home, rested, saw her primary care, took gabapentin (did not help). She had imaging of the cervical spine as an outpatient and was told to go to the ED. MRI of the cervical spine confirmed C5/6 disc herniation with severe cord impingement and edema. She was placed on soft collar and was started on decadrom 4 IV q12 and numbness and tingling of hands improved somewhat. Neurosurgery was consulted and recommended cervical discectomy and fusion. The patient and her family requested a second opinion for neurosurgery. Neurology contacted Dr. Scout Dawson. The patient and her family are also researching spine surgery in [facility] for second opinion since they are hesitant about undergoing surgery and she appears to be very nervous. Patient agrees to be evaluated at [facility]. The accepting doctor was Dr. Dawson.
[2017-09-08 20:47] VITALS: BP 154/89; PULSE 80; RESP 20; TEMP 98.3; O2SAT 98
== END 2017-09-08 22:30 | disposition short-term general hospital (02) | DRG 53 ==
LOC: ED 13:02 → ERH 19:02 → 3RSO 21:28
PROVIDERS: ADMIT Internal Medicine; ATTEND Internal Medicine
DX: S14.105A Unspecified injury at C5 level of cervical spinal cord, initial encounter (principal); M48.02 Spinal stenosis, cervical region; S14.106A Unspecified injury at C6 level of cervical spinal cord, initial encounter; M50.222 Other cervical disc displacement at C5-C6 level; F41.9 Anxiety disorder, unspecified; V00.311A Fall from snowboard, initial encounter; Y93.23 Activity, snow (alpine) (downhill) skiing, snowboarding, sledding, tobogganing and snow tubing; Y92.838 Other recreation area as the place of occurrence of the external cause